=== PATIENT | female | born 1980 | race Caucasian/White ===

== ENCOUNTER → 2017-07-09 | Outpatient (CLI) | payer OTHER | LOC: FIMAGING 12:03 | PROVIDERS: ATTEND Obstetrics & Gynecology Gynecology | DX: Z36.82 Encounter for antenatal screening for nuchal translucency (principal); O09.522 Supervision of elderly multigravida, second trimester; Z3A.12 12 weeks gestation of pregnancy ==

== ENCOUNTER → 2017-09-17 | Outpatient (CLI) | payer OTHER | LOC: FIMAGING 10:27 | PROVIDERS: ATTEND Obstetrics & Gynecology Gynecology | DX: O09.522 Supervision of elderly multigravida, second trimester (principal); Z3A.22 22 weeks gestation of pregnancy ==

== ENCOUNTER → 2018-12-10 | Outpatient (CLI) | payer OTHER | LOC: FIMAGING 12:24 | PROVIDERS: ATTEND Ophthalmology Retina Specialist | DX: Z03.89 Encounter for observation for other suspected diseases and conditions ruled out (principal); H02.849 Edema of unspecified eye, unspecified eyelid ==